=== PATIENT | male | born 1970 | race Two or more races ===

== ENCOUNTER 2021-02-12 09:00 | Inpatient (IN) | payer OTHER ==
[~2021-02-12] VITALS: Ht 180.3 cm; Wt 113.4 kg
[2021-02-12] MEDS ORDERED: ATENOLOL PO (11:13)
[2021-02-12] MEDS ORDERED: TENORMIN50 M1 PO (11:14)
[2021-02-12] MEDS ORDERED: ATORVASTATIN CA40 MG PO (11:14)
[2021-02-12] MEDS ORDERED: TRAMADOL PO (11:15)
[2021-02-12] MEDS ORDERED: AMBIEN CR12.5 MG PO (11:15)
[2021-02-17] MEDS ORDERED: LINZESS290 MCG (11:44)
[2021-02-17] MEDS ORDERED: ULTRAM50 MG (11:44)
[2021-02-17] MEDS ORDERED: FAMOTIDINE20 MG (11:44)
[2021-02-17] MEDS ORDERED: OXYC1TAB9 (11:44)
== END 2021-02-19 15:39 | disposition home or self-care (01) | DRG 333 ==
LOC: SURH 02-17 07:25 → SURG 02-17 07:25 → O/R 02-17 07:25 → SURH 02-17 08:15 → SURG 02-17 15:34 → SURH 02-17 17:00
PROVIDERS: ADMIT Colon & Rectal Surgery; ATTEND Colon & Rectal Surgery
PROC: 0DJD8ZZ Inspection of Lower Intestinal Tract, Via Natural or Artificial Opening Endoscopic (ICD-10-PCS; 2021-02-17)
PROC: 4A1BXSH Monitoring of Gastrointestinal Vascular Perfusion using Indocyanine Green Dye, External Approach (ICD-10-PCS; 2021-02-17)
PROC: 0DTP4ZZ Resection of Rectum, Percutaneous Endoscopic Approach (ICD-10-PCS; principal; 2021-02-17 08:15)
DX: K57.32 Diverticulitis of large intestine without perforation or abscess without bleeding (principal); K55.1 Chronic vascular disorders of intestine; Z20.822 Contact with and (suspected) exposure to COVID-19